=== PATIENT | male | born 1980 | race Caucasian/White ===

== ENCOUNTER 2023-10-19 10:30 | Emergency (ER) | payer BC, SELFPAY ==
[2023-10-19 10:32] VITALS: BP 129/91; PULSE 113; TEMP 36.5; O2SAT 97; BMI 29.1
--- NOTE | 2023-10-19 10:37 | XR_ITS ---
The [address] [address] Patient Name: SOFIA BEATTY MRN: [id number] date: 1980 Sex: M Assigned Patient Location: ER Current Patient Location: ED.MAIN Accession/Order Number: [id number] Exam Date: 10/19/2023 10:40 Report Date: 10/19/2023 11:49 At the request of: SALTY METZGER Procedure: XR hand RT min 3V HISTORY: Pain and swelling of the right wrist and hand after an injury. XR hand RT min 3V, XR wrist RT min 3V: 10/19/2023 10:40 AM EDT COMPARISON: None. FINDINGS: Right wrist: No acute fracture or dislocation is seen. There is a well-corticated 3 mm ossific focus along the dorsal aspect of the radiocarpal joint. There are mild degenerative changes of the triscaphe joint. Right hand: No acute fracture or dislocation is seen. XR/XR hand RT min 3V IMPRESSION: 1. No acute fracture or dislocation of the right wrist or hand. 2. A 3 mm ossific focus along the dorsal aspect of the radiocarpal joint is most compatible with a loose body or less likely a remote posttraumatic ossicle. Electronically authenticated by: ANG JOSEPH Date: 10/19/2023 11:49
--- NOTE | 2023-10-19 10:38 | XR_ITS ---
The [address] [address] Patient Name: SOFIA BEATTY MRN: [id number] date: 1980 Sex: M Assigned Patient Location: ER Current Patient Location: ED.MAIN Accession/Order Number: [id number] Exam Date: 10/19/2023 10:40 Report Date: 10/19/2023 11:49 At the request of: SALTY METZGER Procedure: XR wrist RT min 3V HISTORY: Pain and swelling of the right wrist and hand after an injury. XR hand RT min 3V, XR wrist RT min 3V: 10/19/2023 10:40 AM EDT COMPARISON: None. FINDINGS: Right wrist: No acute fracture or dislocation is seen. There is a well-corticated 3 mm ossific focus along the dorsal aspect of the radiocarpal joint. There are mild degenerative changes of the triscaphe joint. Right hand: No acute fracture or dislocation is seen. XR/XR wrist RT min 3V IMPRESSION: 1. No acute fracture or dislocation of the right wrist or hand. 2. A 3 mm ossific focus along the dorsal aspect of the radiocarpal joint is most compatible with a loose body or less likely a remote posttraumatic ossicle. Electronically authenticated by: ANG JOSEPH Date: 10/19/2023 11:49
--- NOTE | 2023-10-19 11:26 | ED.UPPEXIN1 ---
HPI HPI - Extremity Injury (Upper) General Chief Complaint: Extremity Injury, Upper Stated Complaint: UPPER EXTREMITY INJURY, RIGHT Time Seen by Provider: 10/19/23 10:31 Source: patient Mode of arrival: walk-in Limitations: no limitations History of Present Illness HPI narrative: 43-year-old male presents for right hand and wrist pain. Last night he got it caught in a cattle chute. He came in today to get it checked out. He complains of pain mostly on the dorsum of his hand and he is right-handed. No other injury was sustained. The pain is moderate and worse if he moves it. Related Data Home Medications ?Medication ?Instructions ?Recorded ?Confirmed cariprazine 3 mg capsule (Vraylar) mg 10/19/23 Previous Rx's ?Medication ?Instructions ?Recorded cephalexin 500 mg capsule 500 mg PO TID 7 days #21 caps 10/19/23 ibuprofen 800 mg tablet 800 mg PO Q8H PRN pain #20 tabs 10/19/23 Allergies Allergy/AdvReac Type Severity Reaction Status Date / Time No Known Drug Allergies Allergy Verified 10/19/23 10:36 Opioid HPI Opioid Management Most Recent Pain and Opioid Data: Last Pain Scale 8 10/19/23 10:39 Last ED Pain Assessment 10/19/23 10:39 Review of Systems ROS Narrative A ten point review of systems is negative except as noted above. Exam Narrative Exam Narrative: Nurses note and vital signs reviewed and patient is not hypoxic. General: The patient appears well and in no apparent distress. Skin: Warm, dry, no pallor noted. There is no rash noted. Head: Normocephalic, atraumatic Eye: Normal conjunctiva, no drainage Ears, Nose, Mouth, and Throat: oral mucosa is moist. Nares patent. Cardiovascular: Regular Rate and Rhythm Respiratory: Patient is in no distress, no accessory muscle use, lungs are clear to auscultation, no wheezing, rales or rhonchi Back: non-tender GI: Soft and nontender Musculoskeletal: The right hand and wrist are examined. He has minimal tenderness in the wrist area. He has some erythema and swelling on the dorsum of his right hand and there is a linear abrasion as well. Fingers have good range of motion and sensation is intact. Capillary refill is brisk. Neurological: A&O, normal speech Psychiatric: Cooperative Constitutional Vital Signs, click to edit/add: Last Vital Signs Temp 97.7 F 10/19/23 10:32 Pulse 113 H 10/19/23 10:32 Resp 20 10/19/23 10:32 BP 129/91 10/19/23 10:32 Pulse Ox 97 10/19/23 10:32 O2 Del Method Room Air 10/19/23 10:39 Course Vital Signs Vital signs: Vital Signs Temperature 97.7 F 10/19/23 10:32 Pulse Rate 113 H 10/19/23 10:32 Respiratory Rate 20 10/19/23 10:32 Blood Pressure 129/91 10/19/23 10:32 Pulse Oximetry 97 10/19/23 10:32 Temperature 97.7 F 10/19/23 10:32 Pulse Rate 113 H 10/19/23 10:32 Respiratory Rate 20 10/19/23 10:32 Blood Pressure 129/91 10/19/23 10:32 Pulse Oximetry 97 10/19/23 10:32 Oxygen Delivery Method Room Air 10/19/23 10:39 MDM - Extremity Injury (Upper) MDM Narrative Medical decision making narrative: X-rays per radiologist showed no acute findings. Bacitracin and Bertin wrap were applied, as well as a sling. Application of these were checked by me and found to be appropriate, he is neurovascularly intact. He was prescribed Keflex and ibuprofen and orthopedic appointment was made for tomorrow. Treatment diagnosis and follow-up were discussed with the patient. Imaging Data Hand and wrist x-ray: Radiologist's impression: ITS Impressions Hand X-Ray 10/19/23 10:37 IMPRESSION: 1. No acute fracture or dislocation of the right wrist or hand. 2. A 3 mm ossific focus along the dorsal aspect of the radiocarpal joint is most compatible with a loose body or less likely a remote posttraumatic ossicle. Electronically authenticated by: [employer] READER Date: 10/19/2023 11:49 Wrist X-Ray 10/19/23 10:38 IMPRESSION: 1. No acute fracture or dislocation of the right wrist or hand. 2. A 3 mm ossific focus along the dorsal aspect of the radiocarpal joint is most compatible with a loose body or less likely a remote posttraumatic ossicle. Electronically authenticated by: [employer] Date: 10/19/2023 11:49 Discharge Plan Discharge Stand Alone Forms: Portal Instructions Chief Complaint: Extremity Injury, Upper Clinical Impression: Contusion of right hand Patient Disposition: Home, Self-Care Time of Disposition Decision: 12:04 Condition: Good Mode of Transportation: Private Vehicle Prescriptions / Home Meds: New ibuprofen 800 mg tablet 800 mg PO Q8H PRN (Reason: pain) Qty: 20 0RF cephalexin 500 mg capsule 500 mg PO TID 7 Days Qty: 21 0RF No Action Vraylar 3 mg capsule Print Language: Tajik Instructions: Contusion in Adults (ED) Additional Instructions: See Dr. Bustos at 10:45 AM tomorrow, October 19 Referrals: Physician,Non-Staff, [Primary Care Provider] - 1 week Ricardo Bustos MD [Physician] - 1 week
[2023-10-19] MEDS: IBUPROFEN 400 MG TABLET 800 MG PO (12:22)
[2023-10-19] MEDS: BACITRACIN 0.9 GM PACKET 1 PACKET TOPICAL (12:22)
[2023-10-19] MEDS: CEPHALEXIN 500 MG CAPSULE PO (12:22)
--- NOTE | 2023-10-19 12:28 | PC.NURSE ---
Acewrap & sling applied to right arm per order
== END 2023-10-19 12:30 | disposition home or self-care (01) ==
PROVIDERS: Emergency Provider Emergency Medicine
DX: S60.221A Contusion of right hand, initial encounter (principal); W23.0XXA Caught, crushed, jammed, or pinched between moving objects, initial encounter
CPT/HCPCS: 73110; 73130; 99284